=== PATIENT | male | born 1980 | race Caucasian/White ===

== ENCOUNTER 2016-08-16 14:57 | Emergency (ER) | payer OTHER | END 2016-08-16 17:22 | disposition home or self-care (01) | LOC: FER 14:57 | DX: S91.311A Laceration without foreign body, right foot, initial encounter (principal); W25.XXXA Contact with sharp glass, initial encounter; Y92.009 Unspecified place in unspecified non-institutional (private) residence as the place of occurrence of the external cause | CPT/HCPCS: 73630; 99283 ==

== ENCOUNTER 2020-04-03 14:04 | Emergency (ER) | payer OTHER ==
[~2020-04-03 14:04] MED LIST: MOTRIN600 MG PO
[2020-04-03 16:17] LABS: BASOPHIL 0.5 % (0-2); EOSINOPHIL 0.2 % (0-5); HCT 43.7 % (42.0-52.0); HGB 15.4 g/dl (13.2-18.0); LYMPHOCYTE 10.2 % (15-48); MCH 33.8 pg (25.0-31.0); MCHC 35.2 g/dL (32.0-36.0); MCV 95.8 fL (78.0-100.0); MONOCYTE 8.9 % (0-12); MPV 10.4 fL (6.0-9.5); NEUTROPHIL 79.7 % (41-80); NRBC 0; PLT 195 K/uL (150-400); RBC 4.56 M/uL (4.70-6.00); RDW 12.1 % (11.5-14.0); WBC 12.4 K/uL (4.0-10.5)
[2020-04-03 16:35] LABS: ALBUMIN 4.3 g/dL (3.4-5.0); BILIRUBIN - TOTAL 1.1 mg/dL (0.2-1.0); BUN/CREAT RATIO (CALC) 14.9 RATIO; CREATININE 0.74 mg/dL (0.67-1.17); GLOBULIN (CALCULATION) 3.5 g/dL; TOTAL PROTEIN 7.8 g/dL (6.4-8.2)
== END 2020-04-03 17:22 | disposition home or self-care (01) ==
LOC: FER 14:04
PROVIDERS: Nurse Practitioner Family
DX: M10.062 Idiopathic gout, left knee (principal)
CPT/HCPCS: 36415; 73560; 80053; 84550; 85025; J1100; J1885

== ENCOUNTER 2020-06-02 11:27 | Emergency (ER) | payer OTHER ==
[2020-06-02 12:55] LABS: BASOPHIL 0.3 % (0-2); EOSINOPHIL 0 % (0-5); HCT 44.8 % (42.0-52.0); HGB 15.7 g/dl (13.2-18.0); LYMPHOCYTE 4.9 % (15-48); MCH 33.5 pg (25.0-31.0); MCV 95.5 fL (78.0-100.0); MONOCYTE 11.1 % (0-12); MPV 9.3 fL (6.0-9.5); NEUTROPHIL 82.9 % (41-80); NRBC 0; PLT 239 K/uL (150-400); RBC 4.69 M/uL (4.70-6.00); WBC 10.7 K/uL (4.0-10.5)
[2020-06-02 13:15] LABS: BUN/CREAT RATIO (CALC) 16.7 RATIO; CREATININE 0.66 mg/dL (0.67-1.17); POTASSIUM 4.1 mmol/L (3.5-5.1); URIC ACID 3.1 mg/dL (3.5-7.2)
[2020-06-02] MEDS ORDERED: DICLOFENAC SODI75 MG PO (13:37)
[2020-06-02] MEDS ORDERED: PREDNISONE 20MG20 MG PO (13:37)
== END 2020-06-02 14:10 | disposition home or self-care (01) ==
LOC: FER 11:27
PROVIDERS: Emergency Medicine
DX: M17.12 Unilateral primary osteoarthritis, left knee (principal); M19.072 Primary osteoarthritis, left ankle and foot; M19.031 Primary osteoarthritis, right wrist; M10.9 Gout, unspecified; Z79.899 Other long term (current) drug therapy
CPT/HCPCS: 36415; 80048; 84550; 85025; J1885; J2930

== ENCOUNTER 2020-09-06 09:03 | Emergency (ER) | payer OTHER ==
[~2020-09-06 09:03] MED LIST changes: +DICLOFENAC SODI75 MG PO; +PREDNISONE 20MG20 MG PO
[2020-09-06] MEDS ORDERED: INDOCIN SR75 MG PO (10:33)
[2020-09-06] MEDS ORDERED: NORCO 5-325 TA1 EACH PO (10:33)
== END 2020-09-06 10:38 | disposition home or self-care (01) ==
LOC: FER 09:03
DX: M10.9 Gout, unspecified (principal)
CPT/HCPCS: 96372; 99283; J1885; J2930

== ENCOUNTER 2021-02-05 21:33 | Emergency (ER) | payer SELFPAY ==
[~2021-02-05 21:33] MED LIST changes: +INDOCIN SR75 MG PO; +NORCO 5-325 TA1 EACH PO
== END 2021-02-06 00:40 | disposition left against medical advice (07) ==
LOC: FER 21:33
DX: R51.9 Headache, unspecified (principal); Z53.21 Procedure and treatment not carried out due to patient leaving prior to being seen by health care provider
CPT/HCPCS: 70450; 71045; 72125; 93005